=== PATIENT | male | born 1975 | race Caucasian/White ===

== ENCOUNTER 2023-12-26 10:47 | Emergency (ER) | payer BC, OTHER ==
[~2023-12-26] VITALS: Ht 190.5 cm; Wt 117.9 kg
[2023-12-26] MEDS ORDERED: PROAIR DIGIHAL90 MCG INH (12:13)
[2023-12-26] MEDS ORDERED: LEVOFLOXACIN500 MG PO (12:13)
[2023-12-26] MEDS ORDERED: PREDNISONE50 MG PO (12:17)
== END 2023-12-26 12:23 | disposition home or self-care (01) ==
LOC: ED 10:47
DX: J40 Bronchitis, not specified as acute or chronic (principal); Z20.822 Contact with and (suspected) exposure to COVID-19; I10 Essential (primary) hypertension; Z98.890 Other specified postprocedural states